=== PATIENT | female | born 1965 | race Caucasian/White ===

== ENCOUNTER 2017-09-26 17:39 | Emergency (ER) | payer OTHER ==
[~2017-09-26] VITALS: Ht 160 cm; Wt 56.2 kg
[2017-09-26] MEDS ORDERED: PLAQUENIL200 MG PO (17:51)
[2017-09-26] MEDS ORDERED: MEDROXYPROGEST2.5 MG PO (17:52)
[2017-09-26] MEDS ORDERED: VIVELLE-DOT1 PATC1 TD (17:52)
[2017-09-26] MEDS ORDERED: PROPRANOLOL HCL10 MG PO (17:53)
[2017-09-26] MEDS ORDERED: LEVOTHYROXINE50 MCG PO (17:53)
--- NOTE | 2017-09-27 14:52 | EKG ---
[facility] [address] [facility] [place] [address] Signed Normal sinus rhythm Normal ECG No previous ECGs available Confirmed by JARRETT VIVAS MD ([id number] on 09/27/2017 2:52:06 PM Electronically Signed By: JARRETT VIVAS MD 09/27/17 1452 PATIENT NAME: VANESA BARTON Electrocardiogram DATE OF : 61 PHYSICIAN: JARRETT VIVAS MD REPORT #: [id number] REPORT IS CONFIDENTIAL AND NOT TO BE RELEASED WITHOUT AUTHORIZATION
== END 2017-09-26 20:00 | disposition home or self-care (01) ==
LOC: ED 17:39
DX: R07.9 Chest pain, unspecified (principal); E03.9 Hypothyroidism, unspecified; Z88.8 Allergy status to other drugs, medicaments and biological substances; Z79.899 Other long term (current) drug therapy
CPT/HCPCS: 71045; 71260; 80053; 84484; 85025; 93005; 93010; 99284; Q9967